=== PATIENT | female | born 1995 | race Caucasian/White ===

== ENCOUNTER 2018-11-27 10:07 | Emergency (ER) | payer BC, OTHER ==
[~2018-11-27] VITALS: Ht 162.6 cm; Wt 63.5 kg
--- OUTSIDE RECORDS SUMMARY | 2018-11-27 10:13 | XMS REPORT | Continuity of Care Document ---
Author Organization Unknown Address Unknown Allergies There is no data. Medications There is no data. Problems Date Dx Coded Attending Type Code Diagnosis Diagnosed By 04/20/2014 V74.1 TB SCREENING 04/20/2014 V74.1 TB SCREENING Procedures Code [place] [address] TB TEST INTRADERMAL 04/26/2014 03370 TB TEST INTRADERMAL 2014 Results There is no data. Encounters ACCT No. Visit Date/Time Discharge Status Pt. Type Provider Facility Loc./Unit Complaint [id number] 04/27/2014 13:57:00 04/27/2014 23:59:59 CLS Outpatient [id number] 04/20/2014 19:10:00 04/20/2014 23:59:59 CLS Outpatient [id number] 05/15/2016 19:21:23 05/15/2016 23:59:59 CLS Outpatient Elsie Garcia
--- OUTSIDE RECORDS SUMMARY | 2018-11-27 10:13 | XMS REPORT ---
Author Elsie Cruz [facility] Address [address] [place], [place] [id number] Care Team Providers Care Technical Administrator Name Role Phone Elsie Garcia PCP Allergies and Adverse Reactions Name Reaction Notes NO KNOWN DRUG ALLERGIES Plan of Treatment Not available. Medications Active Name Start Date Estimated Completion Date SIG Comments ibuprofen oral Name Start Date Expiration Date SIG Comments amoxicillin 500 mg oral capsule 05/15/2016 05/25/2016 take 2 capsules (1,000 mg) by oral route every 12 hours x 10 days Problem List Not available. Vital Signs Date Time BP-Sys(mm[Hg] BP-Meg(mm[Hg]) HR(bpm) RR(rpm) Temp WT HT HC BMI BSA BMI Percentile O2 Sat(%) 05/15/2016 5:42:00 PM 124 mmHg 64 mmHg 67 bpm 18 rpm 96.9 F 149.25 lbs 64 in 25.62 kg/m2 1.75 m2 83 % 96 % Social History Name Description Comments denies alcohol use Tobacco Never smoker 05/15/2016 - History of Procedures Not available. Results Summary Not available. History Of Immunizations Not available. History of Past Illness Name Date of Onset Comments Acute Pharyngitis May 15 2016 5:44PM Sinusitis, Acute May 15 2016 5:44PM Fever May 15 2016 5:44PM Tonsillitis May 15 2016 5:44PM Payers Insurance Name Company Name Plan Name Plan Number Policy Number Policy Group Number [id number] N/A History of Encounters Visit Date Visit Type Provider 05/15/2016 Office visit Elsie Garcia [employer]
--- NOTE | 2018-11-27 11:36 | Diagnostic Imaging Report ---
PROCEDURE: US left lower extremity venous. TECHNIQUE: Multiple real-time grayscale images were obtained over the left lower extremity in various projections. Additional duplex Doppler and color Doppler images were also obtained. INDICATION: Left leg injury There is a hematoma left calf measuring 4.2 x 3 cm. The veins of the left leg have good compressibility and color filling. There is normal spontaneous and augmented flow. IMPRESSION: Left calf hematoma. No evidence for venous thrombosis. Dictated by: Dictated on workstation # [id number]
--- NOTE | 2018-11-27 11:52 | Diagnostic Imaging Report ---
Indication: Left lower leg injury Left tibia fibula AP and lateral views of the left tibia fibula show no fracture or dislocation. There are no radiopaque foreign objects. Impression: Negative left tibia and fibula Dictated by: Dictated on workstation # [id number]
--- NOTE | 2018-11-27 11:54 | Diagnostic Imaging Report ---
Indication: Left knee injury 3 views of the left knee show no fracture, dislocation or other acute abnormalities. Impression: Negative left knee Dictated by: Dictated on workstation # [id number]
[2018-11-27 12:10] VITALS: BP 98/61
--- NOTE | 2018-11-27 12:13 | ED Lower Extremity ---
General Chief Complaint: Lower Extremity Stated Complaint: L LEG INJ Nursing Triage Note: AMB TO ROOM INJURED PLAYING SOFTBALL YESTERDAY. L LEG SWOLLEN WITH ABRASION AND BRUISNG. Nursing Sepsis Screen: No Definite Risk Source: patient Exam Limitations: no limitations History of Present Illness Date Seen by Provider: Nov 27, 2018 Time Seen by Provider: 10:21 Initial Comments This 23-year-old young lady presents to the emergency room with bruising, pain, and swelling of the left lower leg after a softball injury. She fell while running in a softball game sliding on the [facility]. This resulted in a large abrasion and bruising. She then proceeded to play to full softball games. She woke this morning with significant swelling, pain, tightness in the calf. She retains range of motion, feeling, capillary refill, and pedal pulses distal to the injury. She is ambulatory. She has been taking ibuprofen for the pain. Allergies and Home Medications Patient Home Medication List Home Medication List Reviewed: Yes Review of Systems Constitutional: no symptoms reported EENTM: no symptoms reported Respiratory: no symptoms reported Cardiovascular: no symptoms reported Gastrointestinal: no symptoms reported Genitourinary: no symptoms reported : No LMP: Nov 10, 2018 Musculoskeletal: see HPI Skin: see HPI Psychiatric/Neurological: No Symptoms Reported Past Jpglmpl-Qlaerg-Ghgohg Hx Past Med/Social Hx: Reviewed and Corrections made Patient Social History Alcohol Use: Denies Use Recreational Drug Use: No Smoking Status: Never a Smoker Recent Foreign Travel: No Contact w/Someone Who Travel: No Recent Infectious Disease Expo: No Past Medical History Surgeries: No Respiratory: No Cardiac: No Neurological: No : No Last Menstrual Period: Nov 10, 2018 Genitourinary: No Gastrointestinal: No Musculoskeletal: No Endocrine: No HEENT: No Cancer: No Psychosocial: No Integumentary: No Physical Exam Vital Signs Vital Signs - First Documented 11/27/18 10:13 Pulse 123 Resp 18 B/P (MAP) 118/89 (99) Pulse Ox 96 O2 Delivery Room Air Capillary Refill : Less Than 3 Seconds Height, Weight, BMI Height: 5'4.00" Weight: 140lbs. oz. 63.655986ww; BMI Method:Stated General Appearance: WD/WN, no apparent distress HEENT: normal ENT inspection Neck: normal inspection Cardiovascular: regular rate, rhythm, no edema, no murmur Respiratory: lungs clear, normal breath sounds, no respiratory distress Hips: bilateral hip non-tender, bilateral hip normal inspection Legs: right leg non-tender, right leg normal inspection; bilateral leg normal range of motion; right leg no evidence of injury; left leg abrasions, left leg ecchymosis, left leg pain, left leg soft tissue tenderness, left leg swelling Knees: right knee non-tender, right knee normal inspection; bilateral knee normal range of motion; left knee bone tenderness, left knee ecchymosis, left knee pain, left knee soft tissue tenderness, left knee swelling Ankles: bilateral ankle non-tender, bilateral ankle normal inspection, bilateral ankle normal range of motion, bilateral ankle no evidence of injury, bilateral ankle abrasions/lacerations Feet: bilateral foot non-tender, bilateral foot normal inspection, bilateral foot normal range of motion, bilateral foot no evidence of injury, bilateral foot other (pedal pulse, sensation, capillary refill, and movement intact. 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, no motor/sensory deficits, alert, normal mood/affect, oriented x 3 Skin: warm/dry, ecchymosis, other (large abrasion on the anterior lateral surface of the left lower leg and knee) Progress/Results/Core Measures Results/Orders My Orders Orders - PAUL MARTINEZ MD Urine Bedside (11/27/18 10:26) Tibia/Fibula, Right, 2 Views (11/27/18 10:26) Knee, Left, 3 Views (11/27/18 10:26) Us Venous Lower Ext Lt (11/27/18 10:26) Vital Signs/I&O 11/27/18 10:13 Pulse 123 Resp 18 B/P (MAP) 118/89 (99) Pulse Ox 96 O2 Delivery Room Air Blood Pressure Mean: 99 Progress Progress Note : Progress Note Case was discussed with Dr. Deluna who deferred to orthopedics. Dr. Hughes recommended ice, elevation, and rest. Follow-up can be pursued in the clinic. Patient was given return precautions regarding compartment syndrome. 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 Diagnostic Imaging Diagonstic Imaging: Xray Plain Films/CT/US/NM/MRI: knee Comments Left knee x-ray viewed by me and report reviewed. See report below: NAME: ELEUTERIO SALAZAR [facility] REC#: [id number] PT STATUS: REG ER : 1995 PHYSICIAN: PAUL MARTINEZ MD ADMIT DATE: 11/27/18/ER Signed Date of Exam: 11/27/18 KNEE, LEFT, 3 VIEWS Indication: Left knee injury 3 views of the left knee show no fracture, dislocation or other acute abnormalities. Impression: Negative left knee Dictated by: Dictated on workstation # [id number] Dict: 11/27/18 1151 Trans: 11/27/18 115 Interpreted by: HECTOR LEWIS MD Electronically signed by: HECTOR LEWIS MD 11/27/18 115 Diagonstic Imaging: Xray Plain Films/CT/US/NM/MRI: leg Comments Left leg x-ray viewed by me and report reviewed. See report below: NAME: ELEUTERIO SALAZAR MED REC#: [id number] PT STATUS: REG ER : 1995 PHYSICIAN: PAUL MARTINEZ MD ADMIT DATE: 11/27/18/ER Signed Date of Exam: 11/27/18 TIBIA/FIBULA, RIGHT, 2 VIEWS Indication: Left lower leg injury Left tibia fibula AP and lateral views of the left tibia fibula show no fracture or dislocation. There are no radiopaque foreign objects. Impression: Negative left tibia and fibula Dictated by: Dictated on workstation # [id number] Dict: 11/27/18 1149 Trans: 11/27/18 115 Interpreted by: HECTOR LEWIS MD Electronically signed by: HECTOR LEWIS MD 11/27/18 115 Diagonstic Imaging: Ultrasound Plain Films/CT/US/NM/MRI: leg Comments Ultrasound of the leg discussed with the gas plant technician and report reviewed. See report below: NAME: ELEUTERIO SALAZAR MED REC#: [id number] PT STATUS: REG ER : 1995 PHYSICIAN: PAUL MARTINEZ MD ADMIT DATE: 11/27/18/ER Signed Date of Exam:11/27/18 US VENOUS LOWER EXT LT PROCEDURE: US left lower extremity venous. TECHNIQUE: Multiple real-time grayscale images were obtained over the left lower extremity in various projections. Additional duplex Doppler and color Doppler images were also obtained. INDICATION: Left leg injury There is a hematoma left calf measuring 4.2 x 3 cm. The veins of the left leg have good compressibility and color filling. There is normal spontaneous and augmented flow. IMPRESSION: Left calf hematoma. No evidence for venous thrombosis. Dictated by: Dictated on workstation # [id number] Dict: 11/27/18 1125 Trans: 11/27/18 1143 CARIN [id number] Interpreted by: HECTOR LEWIS MD Electronically signed by: HECTOR LEWIS MD 11/27/18 1143 Departure Impression Primary Impression: Hematoma of left flank Qualified Codes: S30.1XXA - Contusion of abdominal wall, initial encounter Additional Impression: Abrasion of left leg Qualified Codes: S80.812A - Abrasion, left lower leg, initial encounter Disposition: 01 HOME, SELF-CARE Condition: Stable Departure-Patient Inst. Decision time for Depature: 12:10 Referrals: NO,LOCAL PHYSICIAN (PCP) Primary Care Physician IVONNE HUGHES MD Patient Instructions: HEMATOMA Add. Discharge Instructions: You may ice your leg in 20 minute intervals to help with pain and swelling. Rest and elevate your leg as much as possible until the swelling improves. Elevate to the level of your heart or higher on a soft surface such as pillows. Return to care if you have worsening symptoms including increasing pain, loss of feeling in your foot or toes, weakness, fever, etc. If you are not improving as expected or would like a specialist's opinion, please follow-up with Dr. Hughes or the orthopedic provider of your choice. See his contact information below. The swelling and discoloration from this injury should gradually improve over 2-3 weeks. Use Tylenol up to 1000 mg every 6 hours as needed for pain. After 48 hours, you may add in ibuprofen up to 600 mg every 6 hours. Avoid excessive standing, walking, or strenuous activity until swelling improves. All discharge instructions reviewed with patient and/or family. Voiced understanding. Work/School Note: School/Childcare Release Date Seen in the Emergency Department: Nov 27, 2018 Return to School: Nov 28, 2018 Other Restrictions Listed Below: Elevate left leg as much as possible. Copy Copies To 1: IVONNE HUGHES MD, JOSHUA T MD Nov 27, 2018 12:13
== END 2018-11-27 12:42 | disposition home or self-care (01) ==
LOC: ER 10:09
DX: S30.1XXA Contusion of abdominal wall, initial encounter (principal); S80.812A Abrasion, left lower leg, initial encounter; W18.30XA Fall on same level, unspecified, initial encounter; Y93.64 Activity, baseball
CPT/HCPCS: 73562; 73590; 84703